=== PATIENT | female | born 2005 | race Caucasian/White ===

== ENCOUNTER 2024-10-31 13:38 | Emergency (ER) | payer OTHER, SELFPAY ==
[2024-10-31 13:48] VITALS: BP 134/85
[2024-10-31 14:16] LABS: Hematocrit 37.6 % (37.0-47.0); Hemoglobin 12.8 g/dL (12.0-16.0); Mean Corp Hgb Conc. 34.0 g/dL (33.0-37.0); Mean Corpuscular Volume 86.2 fL (81.0-99.0); Nucleated Red Blood Cells % 0 %; Platelet Count 323 10^3/uL (130-400); Red Cell Dist. Width 12.9 % (11.5-14.5)
[2024-10-31 14:39] LABS: ALT (SGPT) 19 U/L (0-35); AST (SGOT) 24 U/L (14-36); Albumin 4.2 g/dl (3.5-5.0); Alkaline Phosphatase 47 U/L (38-126); Blood Urea Nitrogen 14 mg/dl (7-17); Calcium 8.6 mg/dl (8.4-10.2); Carbon Dioxide 27 mmol/L (22-30); Chloride 104 mmol/L (98-107); Glucose 93 mg/dl (70-99); Lipase 127 U/L (23-300); Potassium 4.4 mmol/L (3.5-5.1); Sodium 135 mmol/L (135-145); Total Protein 6.6 g/dl (6.3-8.2); eGFR > 60.00
[2024-10-31 14:42] LABS: HCG, Serum Qualitative Screen Negative
--- NOTE | 2024-10-31 16:37 | ED.GENMED ---
ED Provider Triage
<Salvatore Cardenas MD, Resident - Last Filed: 11/01/24 15:17>
-
Patient seen by provider in Triage?: Seen in Triage
History of Present Illness
<Salvatore Cardenas MD, Resident - Last Filed: 11/01/24 15:17>
General
Chief Complaint: Abdominal Symptoms
Source: patient
Exam Limitations: none
Time Seen by Provider: 10/31/24 15:33
Nursing documentation reviewed up to this point in time: agreed with
Travel History
Have you traveled to any high risk areas for coronavirus over the past 14 days?: No
Have you had any contact with someone who has COVID-19?: No
Do you have any symptoms of coronavirus? Fever > 100 degrees, chills, cough, shortness of breath, sore throat, loss of taste or smell, muscle aches, or headache?: No
History of Present Illness
History of Present Illness:
Patient is a 19 year old female who is s student at [employer] with a PMH of Anxiety currently controlled on escitalopram who was admitted to [facility] yesterday with same symptoms, had CT abdomen/pelvis which showed ileitis and possible crohns
disease. Was discharged with pain medication and a referral to GI. Today presents for uncontrolled moderate abdominal pain in the hypogastric region, started yesterday morning, intermittent, sharp/stabbing in character, non radiating, associated
with nausea and worsened on eating food. No diarrhea, vomiting, fever, chills, urinary dysuria/frequency. Occasional vaping and drinking, no drug usage. No recent surgical history.
Past History
<Salvatore Cardenas MD, Resident - Last Filed: 11/01/24 15:17>
Past History
ED Past Medical History: Other (Abdominal pain secondary to viral illness)
ED Past Surgical History: None
Social History
Tobacco: Vaping
Alcohol: Occasional
Drug: None
Personal: Single
Living: with roommate
Employment: Student
Review of Systems
<Salvatore Cardenas MD, Resident - Last Filed: 11/01/24 15:17>
Review of Systems
Allergies reviewed?: Yes
All Other Systems: ROS reviewed and negative except as documented in HPI and ROS
Phy Exam
<Salvatore Cardenas MD, Resident - Last Filed: 11/01/24 15:17>
General Physical Exam
General Presentation: well appearing and no apparent distress
General Skin: warm and dry
General Habitus: normal
General Mental: alert
Cardiovascular Exam
Cardiovascular Exam: regular rate/rhythm and no edema
Gastrointestinal Exam
Gastrointestinal Exam: normal bowel sounds, soft, non distended and tender (mild tenderness in the hypogastric region )
Auscultation of Abdomen: normal
Course
<Salvatore Cardenas MD, Resident - Last Filed: 11/01/24 15:17>
Orders/Labs/Results
Orders:
Orders
10/31/24 13:55
Test Result ONCE
10/31/24 13:58
Complete Blood Count/With Diff Urgent
Comprehensive Metabolic Panel Urgent
HCG, Serum Qualitative Screen Urgent
Lipase Urgent
10/31/24 17:04
Dicyclomine [Bentyl] 10 mg PO NOW STA
Abnormal Lab Results
10/31/24
13:58
Absolute Monos (auto) 0.8 H 10^3/uL
(0.1-0.6)
Monocytes % 10.8 H %
(1.7-9.3)
10/31/24 13:58
10/31/24 13:58
Vital Signs
Initial and Last Documented VS:
Initial Vital Signs
Temp Pulse Resp BP Pulse Ox
98.2 F 74 18 134/85 97
10/31/24 13:48 10/31/24 13:48 10/31/24 13:48 10/31/24 13:48 10/31/24 13:48
Last Documented Vital Signs
Temp Pulse Resp BP Pulse Ox
98.2 F 62 18 122/72 98
10/31/24 13:48 10/31/24 17:19 10/31/24 17:19 10/31/24 17:19 10/31/24 17:19
<Hal Mcdermott MD - Last Filed: 10/31/24 21:15>
Orders/Labs/Results
Orders:
Orders
10/31/24 13:55
Test Result ONCE
10/31/24 13:58
Complete Blood Count/With Diff Urgent
Comprehensive Metabolic Panel Urgent
HCG, Serum Qualitative Screen Urgent
Lipase Urgent
10/31/24 17:04
Dicyclomine [Bentyl] 10 mg PO NOW STA
Abnormal Lab Results
10/31/24
13:58
Absolute Monos (auto) 0.8 H 10^3/uL
(0.1-0.6)
Monocytes % 10.8 H %
(1.7-9.3)
10/31/24 13:58
10/31/24 13:58
Vital Signs
Initial and Last Documented VS:
Initial Vital Signs
Temp Pulse Resp BP Pulse Ox
98.2 F 74 18 134/85 97
10/31/24 13:48 10/31/24 13:48 10/31/24 13:48 10/31/24 13:48 10/31/24 13:48
Last Documented Vital Signs
Temp Pulse Resp BP Pulse Ox
98.2 F 62 18 122/72 98
10/31/24 13:48 10/31/24 17:19 10/31/24 17:19 10/31/24 17:19 10/31/24 17:19
<Salvatore Cardenas MD, Resident - Last Filed: 11/01/24 15:17>
MDM/Problems Addressed
Differential Diagnosis Includes:
Crohn's disease, ileitis, IBS, Functional dyspepsia,
MDM/Problems Addressed:
Patient is a 19 year old female with a PMH of anxiety presenting after admission to [facility] yesterday where she was diagnosed with ileitis and possible crohns disease. Was discharged with pain control medication and a referral to GI.
Presented here because her abdominal pain is not subsiding. Stable, afebrile, not in any apparent distress. Will discharge with pain medication and a doctors note.
<Salvatore Cardenas MD, Resident - Last Filed: 11/01/24 15:17>
*Pulse Oximetry
SaO2: 97
Oxygen Mode of Delivery: Room air
Patient hypoxic: no
*Critical Care Note
Total Time (30-74mins, 75-104mins- exclusive of procedures): Not Applicable
<Salvatore Cardenas MD, Resident - Last Filed: 11/01/24 15:17>
Update Note
Update Note:
- will discharge with dicyclomine 20 mg
ED Attending Note
<Salvatore Cardenas MD, Resident - Last Filed: 11/01/24 15:17>
-
Portions of this chart may have been created with voice recognition software.� Occasional wrong word or��sound alike� substitutions may have occurred due to the inherent limitations of voice recognition software.
<Hal Mcdermott MD - Last Filed: 10/31/24 21:15>
ED Attending Note
Patient seen and examined by attending physician: Yes
I performed a history and physical exam of patient and discussed management with resident, I reviewed resident's note and agree with documented findings and plan of care.: Yes
ED Attending Note:
I have seen and evaluated the patient with a [id number] encounter. I have spoken to the resident and involved in the medical history, the physical exam, medical decision making.
Evaluation and management service: agree unless noted differently below.
Results interpretation: agree unless noted differently below.
Focused HPI: 19-year-old female with history as noted presents to the ER for evaluation of abdominal pain. Patient reports onset of symptoms yesterday morning and they have been constant since that time although intensity waxing and waning. She
reports intermittent intense crampy pain. Associated with nausea no vomiting. No diarrhea or constipation. No urinary symptoms. No vaginal bleeding or discharge. She was seen at [employer] emergency room yesterday and had a CT which showed ileitis
was discharged with GI referral. She says she is having continued pain which prompted ER referral today.
Physical exam: Awake and alert not in distress. Vital signs normal. Abdomen soft, minimally tender periumbilical region. No peritoneal signs or masses appreciated. Moist mucous membranes.
Medical Decision Makin-year-old female presents with continued abdominal pain after having CT yesterday showing ileitis. Vitals and exam as above. Labs were sent off including a CBC and a CMP which showed no clinically significant
abnormalities. hCG is negative. Low suspicion for emergent pathology, no indication for repeat imaging at this point. Will plan to trial Bentyl, stable for discharge can follow-up with GI as an outpatient. All questions answered.
Discharge Plan
Departure
Patient Disposition: Home (Routine Discharge)
Date of Disposition: 10/31/24
Time of Disposition: 18:09
Patient with high blood pressure during this ER visit?: No
Discharge Problem:
Abdominal pain
Instructions: Abdominal Pain
Prescriptions:
New
dicyclomine 20 mg tablet
20 mg PO TID PRN (Reason: abdominal pain) Qty: 14 0RF
Referrals:
Macy Garcia MD [Active, Gastroenterology] - Call in 1-3 days for appt
Referral Note: GI physician
Danielle Clemente CRNP [Family Provider, Family Practice]
Stand Alone Forms: Back to School
Activity Restrictions/Additional Instructions:
Thank you for visiting the Emergency Department at [facility].
1. Please schedule a follow up appointment as directed. Call first thing tomorrow morning to make an appointment.
2. If indicated, please take your medications as instructed and indicated on discharge paperwork.
3. If any of your symptoms do not improve, or persist, or become more severe within 6-12 hours, please return to the emergency department for further care.
4. Please return to the emergency department if you develop a headache, neck pain/stiffness, fever greater than 100.4F, chest pain, shortness of breath, persistent nausea, vomiting, slurred speech, difficulty walking, numbness/tingling, weakness,
signs of infection or any other symptoms that are worrisome to you.
Please call [phone] if you have any questions.
Interventions
Interventions:
*Risk Screen - Suicide Last Done: 10/31/24 13:48
*General Assessment Last Done: 10/31/24 13:48
*Neglect/Abuse Screening Last Done: 10/31/24 13:48
*ED- Fall Risk Assessment Last Done: 10/31/24 15:07
*ED COVID-19 Vaccine History Last Done: 10/31/24 15:07
*Nursing Disposition Last Done: 10/31/24 18:15
CH-Gyjnkn-Nsijsdxbzi Assessment Last Done: 10/31/24 15:07
Discharge Date and Time
Discharge Date/Time: 10/31/24 18:18
Print Language: OCCITAN
[2024-10-31] MEDS: BENTYL 10 MG PO (17:13)
[2024-10-31 17:19] VITALS: BP 122/72
== END 2024-10-31 18:18 | disposition home or self-care (01) ==
LOC: EMR 13:38
PROVIDERS: Emergency Medicine; EMERGENCY PHYSICIAN Emergency Medicine; FAMILY PHYSICIAN Nurse Practitioner
DX: R10.9 Unspecified abdominal pain (principal); K52.9 Noninfective gastroenteritis and colitis, unspecified; F17.290 Nicotine dependence, other tobacco product, uncomplicated
CPT/HCPCS: 99283; 80053; 83690; 84703; 85025